=== PATIENT | female | born 1960 | race Caucasian/White ===

== ENCOUNTER 2022-07-12 08:54 | Emergency (ER) | payer OTHER ==
[~2022-07-12] VITALS: Ht 154.9 cm; Wt 109.1 kg
[2022-07-12] MEDS ORDERED: POLY119P2 MT (09:33)
[2022-07-12] MEDS ORDERED: ACET-2708 MT (09:33)
[2022-07-12] MEDS ORDERED: HYDR25SU37 RC (09:33)
[2022-07-12 10:36] VITALS: BP 186/81
== END 2022-07-12 10:41 | disposition home or self-care (01) ==
LOC: ER 08:54
DX: K59.00 Constipation, unspecified (principal); I10 Essential (primary) hypertension; E11.9 Type 2 diabetes mellitus without complications; Z90.49 Acquired absence of other specified parts of digestive tract; Z98.890 Other specified postprocedural states; Z00.00 Encounter for general adult medical examination without abnormal findings
CPT/HCPCS: 99283

== ENCOUNTER 2025-02-16 19:16 | Emergency (ER) | payer MEDICAID ==
[~2025-02-16] VITALS: Ht 152.4 cm; Wt 120.0 kg
[~2025-02-16 19:16] MED LIST: ACET-2708 MT; HYDR25SU37 RC; POLY119P2 MT
[2025-02-16 20:00] VITALS: O2SAT 96
[2025-02-16 20:23] LABS: BASOPHILS % 0.4 % (0.0-2.0); EOSINOPHILS % 2.8 % (0.0-5.0); HEMATOCRIT. 41.5 % (36.0-48.0); HEMOGLOBIN. 13.5 g/dL (12.0-16.0); LYMPHOCYTES % 37.3 % (20.0-50.0); MEAN PLATELET VOLUME 8.3 fl (7.4-10.4); MONOCYTES % 6.9 % (2.0-8.0); NEUTROPHILS % 52.6 % (40.0-76.0); PLATELET 323 x1000/uL (130-400); RED BLOOD CELL COUNT 5.15 mill/uL (4.2-5.4); RED CELL DISTRIBUTION WIDTH 15.9 % (11.6-14.6)
[2025-02-16 20:44] LABS: CREATININE 0.7 mg/dL (0.6-1.0)
[2025-02-16 20:45] LABS: UREA NITROGEN BLOOD 8 mg/dL (9-23)
[2025-02-16] MEDS: METOCLOPRAMIDE HCL 10MG TABLET PO ONE (22:20)
[2025-02-16] MEDS: ACETAMINOPHEN 500MG TABLET PO ONE (22:22)
[2025-02-16] MEDS: HYDRALAZINE HCL 25MG TABLET PO ONE (22:36)
[2025-02-16] MEDS: DIPHENHYDRAMINE 25MG CAPSULE PO ONE (22:37)
[2025-02-16 23:18] LABS: TROPONIN I HIGH SENSITIVITY 6 ng/L (3.0-34)
[2025-02-17] MEDS: KETOROLAC 15MG/ML VIAL IM ONE (00:08)
[2025-02-17 01:03] LABS: TROPONIN I HIGH SENSITIVITY 7 ng/L (3.0-34)
[2025-02-17] MEDS ORDERED: NAPR-1176 MT (01:19)
[2025-02-17 01:48] VITALS: BP 140/61; PULSE 75; RESP 18; TEMP 36.6; O2SAT 96
[2025-02-17 01:58] LABS: TROPONIN I HIGH SENSITIVITY 6 ng/L (3.0-34)
== END 2025-02-17 01:50 | disposition home or self-care (01) ==
LOC: ER 19:16 → CMPBEDREQ 02-17 02:07
DX: R51.9 Headache, unspecified (principal); R00.2 Palpitations; R11.2 Nausea with vomiting, unspecified; H53.8 Other visual disturbances; I10 Essential (primary) hypertension; E11.9 Type 2 diabetes mellitus without complications; Z90.49 Acquired absence of other specified parts of digestive tract; Z79.899 Other long term (current) drug therapy
CPT/HCPCS: 99285; 70450; 71045; 80048; 85025; 84484 ×2; 93005; 36415 ×2; 96372; Q0163; J8597; J1885